=== PATIENT | male | born 2000 ===

== ENCOUNTER 2022-08-31 17:25 | Outpatient (REF) | payer SELFPAY ==
[2022-08-31 21:14] LABS: Abs Immature Grans 0.03 10^3/uL (0.0-0.06); Absolute Basophil Count 0.03 10^3/uL (0.0-0.2); Absolute Eosinophil Count 0.33 10^3/uL (0.0-0.7); Absolute Lymphocyte Count 2.82 10^3/uL (1.2-3.4); Absolute Monocyte Count 0.46 10^3/uL (0.1-0.8); Absolute Neutrophil Count 3.16 10^3/uL (1.2-6.7); Basophils % 0.4; Eosinophils % 4.8; HCT 36.7 % (40.0-50.0); HGB 13.5 g/dL (13.5-17.5); Immature Grans % 0.4; Lymphocytes % 41.3; MCH 31.7 pg (27.0-33.0); MCHC 36.8 % (32.0-36.0); MCV 86 fL (80-95); MPV 10.3 fL (8.0-11.0); Monocytes % 6.7; Neutrophils % 46.4; Platelet Count 300 10^3/uL (130-400); RBC 4.26 10^6/uL (4.36-5.78); RDW 11.4 % (11.8-14.1); RDW-SD 35.6 fL; WBC 6.83 10^3/uL (4.4-10.8)
[2022-08-31 21:46] LABS: ALT 27 U/L (16-63); AST 18 U/L (15-37); Albumin 4.7 g/dL (3.4-5.0); Alkaline Phosphatase 70 U/L (46-116); Anion Gap 6.8 mmol/L (3-11); BUN 19 mg/dL (7-18); Bilirubin, Total 0.5 mg/dL (0.2-1.0); CO2 30.2 mmol/L (21.0-32.0); CREATININE 0.8 mg/dL (0.70-1.30); Chloride 104 mmol/L (98-107); Estimated GFR 129.13 (mL/min/1.73m2); Glucose 140 mg/dL (74-106); Potassium 4.1 mmol/L (3.5-5.1); Sodium 141 mmol/L (136-145); TSH (W/Ref FT4) 1.46 uIU/mL (0.36-3.74)
[2022-09-01 08:49] LABS: Hemoglobin A1C 5.4 % (<5.7)
[2022-09-01 09:32] LABS: Vitamin B12 283 pg/mL (193-986)
== END 2022-08-31 17:26 | disposition home or self-care (01) ==
LOC: NCHCN 17:25
PROVIDERS: PCP Family Medicine; Visit Provider Nurse Practitioner Family
DX: R51.9 Headache, unspecified (principal); F43.21 Adjustment disorder with depressed mood; D64.9 Anemia, unspecified; R73.9 Hyperglycemia, unspecified
CPT/HCPCS: 80053; 82607; 83036; 84443; 85025

== ENCOUNTER 2022-09-01 14:44 | Outpatient (REF) | payer BC, SELFPAY ==
[2022-09-01 20:53] LABS: Abs Immature Grans 0.02 10^3/uL (0.0-0.06); Absolute Basophil Count 0.02 10^3/uL (0.0-0.2); Absolute Lymphocyte Count 1.25 10^3/uL (1.2-3.4); Absolute Monocyte Count 0.59 10^3/uL (0.1-0.8); Absolute Neutrophil Count 6.03 10^3/uL (1.2-6.7); Basophils % 0.2; Eosinophils % 2.5; HCT 35.9 % (40.0-50.0); HGB 12.7 g/dL (13.5-17.5); Immature Grans % 0.2; Lymphocytes % 15.4; MCHC 35.4 % (32.0-36.0); MCV 88 fL (80-95); MPV 10.1 fL (8.0-11.0); Monocytes % 7.3; Neutrophils % 74.4; Platelet Count 274 10^3/uL (130-400); RDW 11.4 % (11.8-14.1); RDW-SD 36.1 fL; WBC 8.11 10^3/uL (4.4-10.8)
[2022-09-01 21:22] LABS: Ferritin 326 ng/mL (26-388); Folate 6.5 ng/mL (8.6-20.0)
[2022-09-01 21:23] LABS: Diff Comment Diff Reviewed; RBC Morphology Normal
[2022-09-01 21:32] LABS: Iron 17 ug/dL (65-175); Total Iron Binding Capacity 290 ug/dL (250-450); Transferrin Sat 6 % (20-55)
[2022-09-03 12:06] LABS: HIV-1/2 Ag & Ab Screen Negative (Negative)
[2022-09-03 13:30] LABS: Lyme Ab w Rflx to Lyme Confirm Negative (Negative)
[2022-09-05 10:05] LABS: CMV Ab, IgG Negative (Negative); CMV Ab, IgM Negative (Negative)
[2022-09-05 10:28] LABS: EBV EA IgG Negative (Negative)
[2022-09-07 13:07] LABS: Parvovirus B19 Ab, IgG Negative (Negative); Parvovirus B19 Ab, IgM Negative (Negative)
[2022-09-07 15:33] LABS: HHV-6 PCR, P Negative (Negative)
[2022-09-09 14:23] LABS: Anaplasma phagocytophilum Negative (Negative); B. miyamotoi PCR Negative (Negative); Babesia divergens/MO-1 Negative (Negative); Babesia duncani Negative (Negative); Babesia microti Negative (Negative); Ehrlichia chaffeensis Negative (Negative); Ehrlichia ewingii/canis Negative (Negative); Ehrlichia muris eauclairensis Negative (Negative)
== END 2022-09-01 14:45 | disposition home or self-care (01) ==
LOC: NCHCN 14:44
PROVIDERS: PCP Family Medicine; Visit Provider Family Medicine
DX: R53.83 Other fatigue (principal); D64.9 Anemia, unspecified; R41.840 Attention and concentration deficit; Z11.4 Encounter for screening for human immunodeficiency virus [HIV]
CPT/HCPCS: 86663; 87389; 87532; 87798; 82728; 82746; 83540; 83550; 85007; 85025; 85045; 86618; 86644; 86645; 86747